=== PATIENT | female | born 1990 | race Caucasian/White ===

== ENCOUNTER 2023-06-18 05:07 | Observation (INO) | payer OTHER, SELFPAY ==
[2023-06-18] VITALS (32 sets, daily range): BP systolic 114–173; BP diastolic 59–102; PULSE 63–103; RESP 11–20; TEMP 36.1–37.1; O2SAT 85–100; BMI 34.0; BMI 36.1
--- NOTE | 2023-06-18 | PATH_ITS ---
[facility] Accession Number: [id number] No. of containers..01 Tissue . 01 Material submitted: . gallbladder - GALLBLADDER . 01 Diagnosis: Gallbladder, Cholecystectomy: Chronic cholecystitis, cholelithiasis, and cholesterolosis. One benign lymph node identified. MRV 06/29/2023 1730 Local . 01 Electronically signed: . Herminia Pearce MD, Pathologist NPI- [id number] . 01 Gross description: . The specimen is received in formalin labeled with the patient's name, , and gallbladder, and consists of an intact gallbladder measuring 9.9 x 3.4 x 3.3 cm with an unremarkable external surface. The cystic duct margin is inked blue. A varghese lymph node candidate is identified measuring 0.7 cm in greatest dimension. The lumen is filled with dark green mucoid bile admixed with multiple yellow bossellated calculi measuring up to 1.7 cm in greatest dimension not grossly obstructing the cystic duct. The mucosa is green and velvety with yellow areas of discoloration. No polyps or lesions are identified. The rodgers average 0.4 cm thick. Professor Of [employer] sections to include the cystic duct margin, full-thickness sections, and lymph node candidate are submitted in cassette A1. ([id number]) /FRR 06/19/2023 1605 Local . 01 Pathologist provided ICD-10: K80.10 . 01 CPT . 804599 Specimen Comment: A courtesy copy of this report has been sent to [phone] Performed at: 01 [facility] [address] [place] [address] [address] [facility], [place], [place] [id number] MD Eusebio Levy MD Phone: [phone]
--- NOTE | 2023-06-18 05:19 | ED_ITS ---
HPI - General Adult <Angel Subramanian - Last Filed: 06/18/23 18:08> General Chief complaint: Abdominal Pain Stated complaint: abd pain rt side Time Seen by Provider: 06/18/23 05:15 Source: patient Mode of arrival: Ambulatory Limitations: no limitations History of Present Illness HPI narrative: Patient is a 32-year-old female who here for evaluation approximately 8 hours right upper quadrant discomfort. She states that it started about 1100 hours last night. She was getting ready for bed when it happened. The pain has been present since then but there have been times when it has been worse than others. Some nausea but she states this is because of the pain. No vomiting. Has not had a bowel movement since the onset of the symptoms. States that urinating does not change it. No fevers. Has had 2 prior C-sections but no other abdominal surgeries. Related Data Home Medications Medication Instructions Recorded Confirmed lisinopril 5 mg tablet 5 mg PO DAILY 06/18/23 06/18/23 Previous Rx's Medication Instructions Recorded acetaminophen 325 mg capsule 650 mg PO QID PRN pain #60 caps 06/18/23 (Tylenol) oxycodone 5 mg tablet 5 mg PO Q6H PRN pain #20 tabs 06/18/23 Allergies Allergy/AdvReac Type Severity Reaction Status Date / Time No Known Drug Allergies Allergy Verified 06/18/23 05:27 Review of Systems <Angel Subramanian Marie Last Filed: 06/18/23 18:08> Cardiovascular Cardiovascular: Reports system reviewed and no additional complaints, except as documented Respiratory Respiratory: Reports system reviewed and no additional complaints, except as documented Gastrointestinal Gastrointestinal: Reports system reviewed and no additional complaints, except as documented Integumentary/Breasts Skin/Breast: Reports system reviewed and no additional complaints, except as documented Hematologic/Lymphatic On Anticoagulants: No Patient History <Angel BrittaneyDO Marie roberts Last Filed: 06/18/23 18:08> Medical History (Updated 06/18/23 @ 12:37 by Atul Robledo MD) HTN (hypertension) Surgical History (Updated 06/18/23 @ 12:37 by Atul Robledo MD) History of section Social History household members: spouse Smoking Status: Never smoker alcohol intake: current Smoking Status: Never smoker alcohol intake frequency: holidays/special occasions only Substance Use Type: does not use Exam <Angel Subramanian, DO - Last Filed: 06/18/23 18:08> Initial Vital Signs Initial Vital Signs: Vital Signs Pulse Oximetry 98 06/18/23 05:13 Oxygen Delivery Method Room Air 06/18/23 05:13 Const General: cooperative and No ill appearing HENMT Head: normal to inspection Chest Other: Tenderness right lower ribs Resp Effort & Inspection: normal respiratory effort Auscultation: clear to auscultation bilaterally Cardio Rate: regular rate Rhythm: regular rhythm GI Inspection: normal to inspection Palpation: soft, No firm, No guarding and tender (Right upper quadrant) Back/Spine/Pelvis Back: No CVA tenderness Skin General: no rashes or lesions noted Neuro General: patient alert, patient awake and moves all extremities Extrem General: normal to inspection <Fabrice Lee DO - Last Filed: 06/18/23 08:52> Initial Vital Signs Initial Vital Signs: Vital Signs Pulse Oximetry 98 06/18/23 05:13 Oxygen Delivery Method Room Air 06/18/23 05:13 Course <Angel Subramanian, - Last Filed: 06/18/23 18:08> Orders Ordered: Acetaminophen (Acetaminophen 325 Mg Tablet) 650 mg PO Q6H COUNTS INCLUDE 234 BEDS AT THE [facility] Last Admin: 06/18/23 16:34 Dose: 650 mg Documented By: PERI Benzocaine (Benzocaine/Menthol 1 Nesha Pkt) 1 each PO Q1HR PRN PRN Reason: Sore Throat Last Admin: 06/18/23 17:28 Dose: 1 each Documented By: JER Hydromorphone HCl (Hydromorphone 0.5 Mg Inj) 0.5 mg IV Q2H PRN PRN Reason: Pain, Severe (7-10) Lactated Ringer's (Lactated Ringers) 1,000 mls @ 125 mls/hr IV NOW ONE Stop: 06/18/23 21:35 Last Infusion: 06/18/23 16:52 Dose: 0 mls/hr Documented By: Admin: 06/18/23 15:27 Dose: 125 mls/hr Documented By: Infusion: 06/18/23 15:27 Dose: 125 mls/hr Documented By: Admin: 06/18/23 13:36 Dose: 125 mls/hr Documented By: PERI Lisinopril (Lisinopril 5 Mg Tablet) 5 mg PO DAILY COUNTS INCLUDE 234 BEDS AT THE [facility] Ondansetron HCl (Ondansetron 4 Mg/2 Ml Inj) 4 mg IV NOW PRN PRN Reason: Nausea And Vomiting Last Admin: 06/18/23 16:35 Dose: 4 mg Documented By: PERI Oxycodone HCl (Oxycodone Ir 5 Mg Tablet) 5 mg PO Q3H PRN PRN Reason: Pain, Moderate (4-6) Discontinued Medications Bupivacaine HCl (Bupivacaine 0.25% (Pf) Vial) 30 ml INJ NOW ONE Stop: 06/18/23 14:54 Last Admin: 06/18/23 14:53 Dose: 30 ml Documented By: KAYLI Fentanyl (Fentanyl 100 Mcg/2 Ml Inj) 0 mcg IV Q5MIN PRN PRN Reason: Pain, Severe (7-10) Fentanyl (Fentanyl 100 Mcg/2 Ml Inj) 0 mcg IV Q5M PRN PRN Reason: Pain, Moderate (4-6) Fentanyl (Fentanyl 100 Mcg/2 Ml Inj) 0 mcg IV Q5M PRN PRN Reason: Pain, Severe (7-10) Hydromorphone HCl (Hydromorphone 1 Mg Inj) 0 mg IV Q5MIN PRN PRN Reason: Pain, Mild (1-3) Hydromorphone HCl (Hydromorphone 1 Mg Inj) 0 mg IV Q5MIN PRN PRN Reason: Pain, Moderate (4-6) Last Admin: 06/18/23 16:45 Dose: 0.5 mg Documented By: Admin: 06/18/23 16:39 Dose: 0.5 mg Documented By: Admin: 06/18/23 16:34 Dose: 0.5 mg Documented By: PERI Hydromorphone HCl (Hydromorphone 1 Mg Inj) 0 mg IV Q5MIN PRN PRN Reason: Pain, Severe (7-10) Sodium Chloride (Normal Saline 0.9%) 1,000 mls @ 1,000 mls/hr IV BOLUS ONE Stop: 06/18/23 06:57 Last Infusion: 06/18/23 07:16 Dose: 0 mls/hr Documented By: Admin: 06/18/23 06:02 Dose: 1,000 mls/hr Documented By: RADHA Piperacillin Sod/Tazobactam (Sod 4.5 gm/ Sodium Chloride) 100 mls @ 200 mls/hr IV NOW ONE Stop: 06/18/23 08:49 Last Infusion: 06/18/23 09:33 Dose: 0 mls/hr Documented By: Admin: 06/18/23 09:03 Dose: 200 mls/hr Documented By: BISHOP Cefazolin Sodium/Dextrose (Ancef) 100 mls @ 200 mls/hr IV NOW ONE Stop: 06/18/23 15:23 Last Infusion: 06/18/23 14:35 Dose: 0 mls/hr Documented By: Admin: 06/18/23 14:22 Dose: 200 mls/hr Documented By: LEE Tranexamic Acid 1,000 mg/ (Sodium Chloride) 100 mls @ 200 mls/hr IV INTRA-OP ONE Stop: 06/18/23 16:03 Last Admin: 06/18/23 15:37 Dose: 200 mls/hr Documented By: LEE Ketorolac Tromethamine (Ketorolac 30 Mg/Ml Vial) 30 mg IV NOW ONE Stop: 06/18/23 05:20 Last Admin: 06/18/23 05:32 Dose: 30 mg Documented By: RADHA Lorazepam (Lorazepam 2 Mg/Ml Inj) 0.25 mg IV NOW PRN PRN Reason: Anxiety Naloxone HCl (Naloxone 0.4 Mg/Ml Vial) 0.2 mg IV Q2MIN PRN PRN Reason: Opiate Reversal Ondansetron HCl (Ondansetron 4 Mg/2 Ml Inj) 4 mg IV NOW ONE Stop: 06/18/23 05:20 Last Admin: 06/18/23 07:02 Dose: Not Given Documented By: RADHA Oxycodone HCl (Oxycodone Ir 5 Mg Tablet) 5 mg PO PACUNOW PRN PRN Reason: Mild or moderate pain Last Admin: 06/18/23 16:35 Dose: 5 mg Documented By: PERI Prochlorperazine (Prochlorperazine 10 Mg/2 Ml Vial) 5 mg IV NOW ONE Stop: 06/18/23 17:20 Last Admin: 06/18/23 17:28 Dose: 5 mg Documented By: JER Vital Signs Vital signs: Vital Signs - 8 hr 06/18/23 05:16 06/18/23 05:13 06/18/23 05:14 Temperature 98.7 F Pulse Rate 98 H Respiratory Rate 17 Blood Pressure 173/102 H 173/102 H Pulse Oximetry 100 98 Oxygen Delivery Method Room Air Room Air 06/18/23 05:14 06/18/23 05:30 06/18/23 05:33 Temperature Pulse Rate 103 H 87 Respiratory Rate Blood Pressure 134/75 Pulse Oximetry 100 97 Oxygen Delivery Method Room Air Room Air 06/18/23 05:33 06/18/23 06:00 06/18/23 06:00 Temperature Pulse Rate 92 H 68 Respiratory Rate 18 Blood Pressure 125/59 L Pulse Oximetry 97 94 Oxygen Delivery Method Room Air 06/18/23 06:36 06/18/23 06:36 06/18/23 07:00 Temperature Pulse Rate 82 Respiratory Rate Blood Pressure 117/79 114/65 Pulse Oximetry 97 Oxygen Delivery Method Room Air 06/18/23 07:00 06/18/23 07:30 06/18/23 07:30 Temperature Pulse Rate 69 72 Respiratory Rate Blood Pressure 120/65 Pulse Oximetry 98 99 Oxygen Delivery Method <Fabrice Lee, - Last Filed: 06/18/23 08:52> Orders Ordered: Acetaminophen (Acetaminophen 325 Mg Tablet) 650 mg PO Q6H KEYLA Last Admin: 06/18/23 16:34 Dose: 650 mg Documented By: PERI Benzocaine (Benzocaine/Menthol 1 Nesha Pkt) 1 each PO Q1HR PRN PRN Reason: Sore Throat Last Admin: 06/18/23 17:28 Dose: 1 each Documented By: JER Hydromorphone HCl (Hydromorphone 0.5 Mg Inj) 0.5 mg IV Q2H PRN PRN Reason: Pain, Severe (7-10) Lactated Ringer's (Lactated Ringers) 1,000 mls @ 125 mls/hr IV NOW ONE Stop: 06/18/23 21:35 Last Infusion: 06/18/23 16:52 Dose: 0 mls/hr Documented By: Admin: 06/18/23 15:27 Dose: 125 mls/hr Documented By: Infusion: 06/18/23 15:27 Dose: 125 mls/hr Documented By: Admin: 06/18/23 13:36 Dose: 125 mls/hr Documented By: PERI Lisinopril (Lisinopril 5 Mg Tablet) 5 mg PO DAILY COUNTS INCLUDE 234 BEDS AT THE [facility] Ondansetron HCl (Ondansetron 4 Mg/2 Ml Inj) 4 mg IV NOW PRN PRN Reason: Nausea And Vomiting Last Admin: 06/18/23 16:35 Dose: 4 mg Documented By: PERI Oxycodone HCl (Oxycodone Ir 5 Mg Tablet) 5 mg PO Q3H PRN PRN Reason: Pain, Moderate (4-6) Discontinued Medications Bupivacaine HCl (Bupivacaine 0.25% (Pf) Vial) 30 ml INJ NOW ONE Stop: 06/18/23 14:54 Last Admin: 06/18/23 14:53 Dose: 30 ml Documented By: KAYLI Fentanyl (Fentanyl 100 Mcg/2 Ml Inj) 0 mcg IV Q5MIN PRN PRN Reason: Pain, Severe (7-10) Fentanyl (Fentanyl 100 Mcg/2 Ml Inj) 0 mcg IV Q5M PRN PRN Reason: Pain, Moderate (4-6) Fentanyl (Fentanyl 100 Mcg/2 Ml Inj) 0 mcg IV Q5M PRN PRN Reason: Pain, Severe (7-10) Hydromorphone HCl (Hydromorphone 1 Mg Inj) 0 mg IV Q5MIN PRN PRN Reason: Pain, Mild (1-3) Hydromorphone HCl (Hydromorphone 1 Mg Inj) 0 mg IV Q5MIN PRN PRN Reason: Pain, Moderate (4-6) Last Admin: 06/18/23 16:45 Dose: 0.5 mg Documented By: Admin: 06/18/23 16:39 Dose: 0.5 mg Documented By: Admin: 06/18/23 16:34 Dose: 0.5 mg Documented By: PERI Hydromorphone HCl (Hydromorphone 1 Mg Inj) 0 mg IV Q5MIN PRN PRN Reason: Pain, Severe (7-10) Sodium Chloride (Normal Saline 0.9%) 1,000 mls @ 1,000 mls/hr IV BOLUS ONE Stop: 06/18/23 06:57 Last Infusion: 06/18/23 07:16 Dose: 0 mls/hr Documented By: Admin: 06/18/23 06:02 Dose: 1,000 mls/hr Documented By: RADHA Piperacillin Sod/Tazobactam (Sod 4.5 gm/ Sodium Chloride) 100 mls @ 200 mls/hr IV NOW ONE Stop: 06/18/23 08:49 Last Infusion: 06/18/23 09:33 Dose: 0 mls/hr Documented By: Admin: 06/18/23 09:03 Dose: 200 mls/hr Documented By: BISHOP Cefazolin Sodium/Dextrose (Ancef) 100 mls @ 200 mls/hr IV NOW ONE Stop: 06/18/23 15:23 Last Infusion: 06/18/23 14:35 Dose: 0 mls/hr Documented By: Admin: 06/18/23 14:22 Dose: 200 mls/hr Documented By: LEE Tranexamic Acid 1,000 mg/ (Sodium Chloride) 100 mls @ 200 mls/hr IV INTRA-OP ONE Stop: 06/18/23 16:03 Last Admin: 06/18/23 15:37 Dose: 200 mls/hr Documented By: LEE Ketorolac Tromethamine (Ketorolac 30 Mg/Ml Vial) 30 mg IV NOW ONE Stop: 06/18/23 05:20 Last Admin: 06/18/23 05:32 Dose: 30 mg Documented By: RADHA Lorazepam (Lorazepam 2 Mg/Ml Inj) 0.25 mg IV NOW PRN PRN Reason: Anxiety Naloxone HCl (Naloxone 0.4 Mg/Ml Vial) 0.2 mg IV Q2MIN PRN PRN Reason: Opiate Reversal Ondansetron HCl (Ondansetron 4 Mg/2 Ml Inj) 4 mg IV NOW ONE Stop: 06/18/23 05:20 Last Admin: 06/18/23 07:02 Dose: Not Given Documented By: RADHA Oxycodone HCl (Oxycodone Ir 5 Mg Tablet) 5 mg PO PACUNOW PRN PRN Reason: Mild or moderate pain Last Admin: 06/18/23 16:35 Dose: 5 mg Documented By: PERI Prochlorperazine (Prochlorperazine 10 Mg/2 Ml Vial) 5 mg IV NOW ONE Stop: 06/18/23 17:20 Last Admin: 06/18/23 17:28 Dose: 5 mg Documented By: JER Vital Signs Vital signs: Vital Signs - 8 hr 06/18/23 05:16 06/18/23 05:13 06/18/23 05:14 Temperature 98.7 F Pulse Rate 98 H Respiratory Rate 17 Blood Pressure 173/102 H 173/102 H Pulse Oximetry 100 98 Oxygen Delivery Method Room Air Room Air 06/18/23 05:14 06/18/23 05:30 06/18/23 05:33 Temperature Pulse Rate 103 H 87 Respiratory Rate Blood Pressure 134/75 Pulse Oximetry 100 97 Oxygen Delivery Method Room Air Room Air 06/18/23 05:33 06/18/23 06:00 06/18/23 06:00 Temperature Pulse Rate 92 H 68 Respiratory Rate 18 Blood Pressure 125/59 L Pulse Oximetry 97 94 Oxygen Delivery Method Room Air 06/18/23 06:36 06/18/23 06:36 06/18/23 07:00 Temperature Pulse Rate 82 Respiratory Rate Blood Pressure 117/79 114/65 Pulse Oximetry 97 Oxygen Delivery Method Room Air 06/18/23 07:00 06/18/23 07:30 06/18/23 07:30 Temperature Pulse Rate 69 72 Respiratory Rate Blood Pressure 120/65 Pulse Oximetry 98 99 Oxygen Delivery Method Medical Decision Making <Angel Subramanian, - Last Filed: 06/18/23 18:08> Lab Data 06/18/23 05:23 06/18/23 05:23 Labs: Lab Results 06/18/23 06/18/23 Range/Units 05:23 05:23 WBC 10.9 (4.5-11.0) X10^3/uL RBC 4.84 (4.0-5.2) X10^6/uL Hgb 14.7 (12.0-16.0) g/dL Hct 42.9 (36-46) % MCV 88.5 (80-100) fL MCH 30.4 (26-34) PG MCHC 34.3 (30-36) % RDW 13.1 (11.6-14.8) % Plt Count 264 (150-400) X10^3/uL Neut % (Auto) 50.5 (50-75) % Lymph % (Auto) 39.8 (25-40) % Wayne % (Auto) 7.4 (3-14) % Eos % (Auto) 1.2 L (2-4) % Baso % (Auto) 1.1 (0-2) % Neut # (Auto) 5500 (4908-7763) /uL Lymph # (Auto) 4400 (2029-4030) /uL Wayne # (Auto) 800 (0-900) /uL Eos # (Auto) 100 (0-450) /uL Baso # (Auto) 100 (0-100) /uL Sodium 139 (137-145) mmol/L Potassium 3.8 (3.4-5.1) mmol/L Chloride 107 (98-107) mmol/L Carbon Dioxide 20 L (22-32) mmol/L BUN 16 (7-17) mg/dL Creatinine 0.77 (0.52-1.04) mg/dL Estimated GFR > 60 (>60) mL/min BUN/Creatinine Ratio 20.8 (6-22) Glucose 115 H (70-100) mg/dL Calcium 9.2 (8.4-10.2) mg/dL Total Bilirubin 0.3 (0.2-1.3) mg/dL AST 22 (14-36) IU/L ALT 17 (<35) IU/L Alkaline Phosphatase 63 (38-126) U/L Total Protein 8.2 (6.3-8.2) g/dL Albumin 4.6 (3.5-5.0) g/dL Globulin 3.6 (1.7-4.1) g/dL Albumin/Globulin Ratio 1.3 (1.0-2.8) Lipase 242 (23-300) U/L Point of Care Testing Test Results Negative Urine Dip Bedside Urine Glucose Negative Bedside Urine Bilirubin - Negative Bedside Urine Ketone - Negative Urine Specific Tarzana 1.01 Bedside Urine Occult Blood - Negative Bedside Urine pH 7.5 Bedside Urine Protein - Negative Bedside Urine Urobilinogen - Negative Bedside Urine Nitrite - Negative Bedside Urine Leukocytes - Negative Esterase Point of care testing: Point of Care Testing Test Results Negative Urine Dip Bedside Urine Glucose Negative Bedside Urine Bilirubin - Negative Bedside Urine Ketone - Negative Urine Specific Tarz[place] 1.01 Bedside Urine Occult Blood - Negative Bedside Urine pH 7.5 Bedside Urine Protein - Negative Bedside Urine Urobilinogen - Negative Bedside Urine Nitrite - Negative Bedside Urine Leukocytes - Negative Esterase MDM Narrative Medical decision making narrative: Right upper quadrant pain. LFTs and lipase unremarkable. Ultrasound obtained to evaluate for gallbladder pathology. Care turned over to Dr. Lee who follow-up and disposition. <Fabrice Lee, DO - Last Filed: 06/18/23 08:52> Lab Data Labs: Lab Results 06/18/23 06/18/23 Range/Units 05:23 05:23 WBC 10.9 (4.5-11.0) X10^3/uL RBC 4.84 (4.0-5.2) X10^6/uL Hgb 14.7 (12.0-16.0) g/dL Hct 42.9 (36-46) % MCV 88.5 (80-100) fL MCH 30.4 (26-34) PG MCHC 34.3 (30-36) % RDW 13.1 (11.6-14.8) % Plt Count 264 (150-400) X10^3/uL Neut % (Auto) 50.5 (50-75) % Lymph % (Auto) 39.8 (25-40) % Wayne % (Auto) 7.4 (3-14) % Eos % (Auto) 1.2 L (2-4) % Baso % (Auto) 1.1 (0-2) % Neut # (Auto) 5500 (8731-0044) /uL Lymph # (Auto) 4400 (5788-7331) /uL Wayne # (Auto) 800 (0-900) /uL Eos # (Auto) 100 (0-450) /uL Baso # (Auto) 100 (0-100) /uL Sodium 139 (137-145) mmol/L Potassium 3.8 (3.4-5.1) mmol/L Chloride 107 (98-107) mmol/L Carbon Dioxide 20 L (22-32) mmol/L BUN 16 (7-17) mg/dL Creatinine 0.77 (0.52-1.04) mg/dL Estimated GFR > 60 (>60) mL/min BUN/Creatinine Ratio 20.8 (6-22) Glucose 115 H (70-100) mg/dL Calcium 9.2 (8.4-10.2) mg/dL Total Bilirubin 0.3 (0.2-1.3) mg/dL AST 22 (14-36) IU/L ALT 17 (<35) IU/L Alkaline Phosphatase 63 (38-126) U/L Total Protein 8.2 (6.3-8.2) g/dL Albumin 4.6 (3.5-5.0) g/dL Globulin 3.6 (1.7-4.1) g/dL Albumin/Globulin Ratio 1.3 (1.0-2.8) Lipase 242 (23-300) U/L Point of Care Testing Test Results Negative Urine Dip Bedside Urine Glucose Negative Bedside Urine Bilirubin - Negative Bedside Urine Ketone - Negative Urine Specific Tarz[place] 1.01 Bedside Urine Occult Blood - Negative Bedside Urine pH 7.5 Bedside Urine Protein - Negative Bedside Urine Urobilinogen - Negative Bedside Urine Nitrite - Negative Bedside Urine Leukocytes - Negative Esterase Point of care testing: Point of Care Testing Test Results Negative Urine Dip Bedside Urine Glucose Negative Bedside Urine Bilirubin - Negative Bedside Urine Ketone - Negative Urine Specific Tarz[place] 1.01 Bedside Urine Occult Blood - Negative Bedside Urine pH 7.5 Bedside Urine Protein - Negative Bedside Urine Urobilinogen - Negative Bedside Urine Nitrite - Negative Bedside Urine Leukocytes - Negative Esterase MDM Narrative Medical decision making narrative: Right upper quadrant pain. LFTs and lipase unremarkable. Ultrasound obtained to evaluate for gallbladder pathology. Care turned over to Dr. Lee who follow-up and disposition. [0700] (Jesus) Patient received in sign out from [Marilynn]. I have reviewed the clinical course and performed an independent history and physical exam. Pain well controlled, results of US pending. Ultrasound returns and demonstrates evidence of early cholecystitis in the presence of multiple stones including an 8 mm nonmobile stone stuck in the gallbladder neck. At this point I placed a call to Dr. Robledo and after discussing history, physical exam, labs and imaging he recommends patient be sta rted on Zosyn and admitted for cholecystectomy likely later today. I was able to discuss this diagnosis and plan with patient and family who were quick to agree. Discharge Plan Departure Patient Disposition: Admitted As Inpatient Clinical Impression: Cholelithiasis, Cholecystitis Admit Date/Time: 06/18/23 08:50 Admit Provider: Atul Robledo
[2023-06-18 05:32] LABS: Add Manual Diff / Slide Review NO; Basophils Absolute Auto 100 /uL (0-100); Basophils Percent Auto 1.1 % (0-2); Eosinophils Absolute Auto 100 /uL (0-450); Eosinophils Percent Auto 1.2 % (2-4); Hematocrit 42.9 % (36-46); Hemoglobin 14.7 g/dL (12.0-16.0); Lymphocytes Absolute Auto 4400 /uL (1100-4500); Lymphocytes Percent Auto 39.8 % (25-40); Mean Corpuscular HGB Conc 34.3 % (30-36); Mean Corpuscular Hemoglobin 30.4 PG (26-34); Mean Corpuscular Volume 88.5 fL (80-100); Monocytes Absolute Auto 800 /uL (0-900); Monocytes Percent Auto 7.4 % (3-14); Neutrophils Absolute Auto 5500 /uL (1500-7000); Neutrophils Percent Auto 50.5 % (50-75); Platelet Count 264 X10^3/uL (150-400); Red Blood Cell Count 4.84 X10^6/uL (4.0-5.2); Red Cell Distribution Width 13.1 % (11.6-14.8); White Blood Cell Count 10.9 X10^3/uL (4.5-11.0)
[2023-06-18] MEDS: KETOROLAC 30 MG/ML VIAL IV (05:32)
[2023-06-18 05:42] LABS: Alanine Aminotransferase 17 IU/L (<35); Albumin 4.6 g/dL (3.5-5.0); Albumin Globulin Ratio 1.3 (1.0-2.8); Alkaline Phosphatase 63 U/L (38-126); Aspartate Aminotransferase 22 IU/L (14-36); BUN Creatinine Ratio 20.8 (6-22); Bilirubin Total 0.3 mg/dL (0.2-1.3); Blood Urea Nitrogen 16 mg/dL (7-17); Calcium 9.2 mg/dL (8.4-10.2); Carbon Dioxide 20 mmol/L (22-32); Chloride 107 mmol/L (98-107); Estimated Glomerular Filt Rate > 60 mL/min (>60); Globulin 3.6 g/dL (1.7-4.1); Glucose 115 mg/dL (70-100); HEMOLYSIS < 15 (0-50); Lipase 242 U/L (23-300); Potassium 3.8 mmol/L (3.4-5.1); Sodium 139 mmol/L (137-145); Total Protein 8.2 g/dL (6.3-8.2)
--- NOTE | 2023-06-18 05:57 | DI.US.S_ITS ---
PROCEDURE: US ABDOMEN LIMITED INDICATIONS: RUQ PAIN TECHNIQUE: Real-time scanning was performed of the abdominal and retroperitoneal organs, with image documentation. COMPARISON: None. FINDINGS: Liver: Liver is normal in size and homogeneous in echotexture. Gallbladder: Gallbladder contains multiple non-mobile gallstones, largest approximately 8mm in size which is apparently lodged in the gallbladder neck. There is no pericholecystic fluid or wall thickening. There is a positive/abnormal sonographic Gale's sign. Biliary ducts: Intrahepatic bile ducts are non-dilated. Extrahepatic bile duct caliber measures 5 mm. Normal is 6-7 mm or less in diameter, or 10 mm or less post-cholecystectomy. Pancreas: Visualized portions of the pancreas are sonographically normal. Miscellaneous: No free abdominal fluid. IMPRESSION: Cholelithiasis with sonographic findings consistent with acute cholecystitis. Dictated by: Oren Sumner M.D. on 06/18/2023 at 7:24 Approved by: Oren Sumner M.D. on 06/18/2023 at 7:26
[2023-06-18] MEDS: SODIUM CHLORIDE 0.9% 1,000 ML 1000 ML IV (06:02)
[2023-06-18] MEDS: PIPERACILLIN/TAZO 4.5 GM in SODIUM CHLORIDE 0.9% 100 ML IV (09:03)
[2023-06-18 10:55] LABS: MRSA (Nasal) PCR Not Detected (Not Detect)
--- NOTE | 2023-06-18 12:32 | PM.HP.1 ---
History of Present Illness History of Present Illness Date Patient Seen: 06/18/23 Time Patient Seen: 12:33 Chief complaint: abd pain rt side Narrative: Ms. Samuels is a 32 year old woman with a history of controlled hypertension who presented to the emergency department at [facility] 06/17 with severe right upper quadrant pain. Workup demonstrates normal liver function tests and no leukocytosis. Ultrasound of the abdomen demonstrates multiple gallstones with a stone stuck within the neck of the gallbladder no pericholecystic fluid or wall thickening. She received 1 dose of Zosyn within the emergency department. This morning her pain is improved but not resolved. She has had numerous episodes of postprandial abdominal discomfort/bloating and had previously attributed this to food intolerance. She is been NPO since midnight. Prior surgeries include section x2 with no bleeding or anesthetic issues. [facility] Medical History (Updated 06/18/23 @ 12:37 by Atul Robledo MD) HTN (hypertension) Surgical History (Updated 06/18/23 @ 12:37 by Atul Robledo MD) History of section Social History household members: spouse Smoking Status: Never smoker Meds Home Medications and Allergies Home Medications Medication Instructions Recorded Confirmed Type lisinopril 5 mg tablet 5 mg PO DAILY 06/18/23 06/18/23 History oxycodone 5 mg tablet 5 mg PO Q6H PRN pain #20 tabs 06/18/23 Rx Allergies Allergy/AdvReac Type Severity Reaction Status Date / Time No Known Drug Allergies Allergy Verified 06/18/23 05:27 Exam Vital Signs (past 8 hours): - 06/18/23 05:16 06/18/23 05:13 06/18/23 05:14 Temperature 98.7 F Pulse Rate 98 H Respiratory Rate 17 Blood Pressure 173/102 H 173/102 H Pulse Oximetry 100 98 Oxygen Delivery Method Room Air Room Air 06/18/23 05:14 06/18/23 05:30 06/18/23 05:33 Temperature Pulse Rate 103 H 87 Respiratory Rate Blood Pressure 134/75 Pulse Oximetry 100 97 Oxygen Delivery Method Room Air Room Air 06/18/23 05:33 06/18/23 06:00 06/18/23 06:00 Temperature Pulse Rate 92 H 68 Respiratory Rate 18 Blood Pressure 125/59 L Pulse Oximetry 97 94 Oxygen Delivery Method Room Air 06/18/23 06:36 06/18/23 06:36 06/18/23 07:00 Temperature Pulse Rate 82 Respiratory Rate Blood Pressure 117/79 114/65 Pulse Oximetry 97 Oxygen Delivery Method Room Air 06/18/23 07:00 06/18/23 07:30 06/18/23 07:30 Temperature Pulse Rate 69 72 Respiratory Rate Blood Pressure 120/65 Pulse Oximetry 98 99 Oxygen Delivery Method 06/18/23 08:00 06/18/23 08:00 06/18/23 08:30 Temperature Pulse Rate 69 Respiratory Rate Blood Pressure 114/69 122/74 Pulse Oximetry 98 Oxygen Delivery Method 06/18/23 08:30 06/18/23 09:00 06/18/23 09:00 Temperature Pulse Rate 77 86 Respiratory Rate Blood Pressure 140/83 Pulse Oximetry 98 100 Oxygen Delivery Method 06/18/23 09:34 06/18/23 10:08 Temperature Pulse Rate 88 Respiratory Rate 16 Blood Pressure 136/78 Pulse Oximetry 100 Oxygen Delivery Method Room Air Room Air Oxygen Delivery Method Room Air Narrative Exam Narrative: GENERAL: A well nourished, well developed adult, resting comfortably in hospital bed, in no acute distress. HEENT: Normocephalic, atraumatic. No scleral icterus CHEST: Rising symmetrically. No audible wheezes CARDIOVASCULAR: Warm and well perfused. Regular rate ABDOMEN: Tender right upper quadrant. No peritonitis. EXTREMITIES: Normal tone and without edema. NEUROLOGIC: Moving all extremities spontaneously. No gross motor deficits. Objective Labs 06/18/23 05:23 06/18/23 05:23 Labs: Laboratory Results - last 24 hr 06/18/23 06/18/23 06/18/23 05:23 05:23 09:42 WBC 10.9 RBC 4.84 Hgb 14.7 Hct 42.9 MCV 88.5 MCH 30.4 MCHC 34.3 RDW 13.1 Plt Count 264 Neut % (Auto) 50.5 Lymph % (Auto) 39.8 Terrell % (Auto) 7.4 Eos % (Auto) 1.2 L Baso % (Auto) 1.1 Neut # (Auto) 5500 Lymph # (Auto) 4400 Terrell # (Auto) 800 Eos # (Auto) 100 Baso # (Auto) 100 Sodium 139 Potassium 3.8 Chloride 107 Carbon Dioxide 20 L BUN 16 Creatinine 0.77 Estimated GFR > 60 BUN/Creatinine Ratio 20.8 Glucose 115 H Calcium 9.2 Total Bilirubin 0.3 AST 22 ALT 17 Alkaline Phosphatase 63 Total Protein 8.2 Albumin 4.6 Globulin 3.6 Albumin/Globulin Ratio 1.3 Lipase 242 Nasal Screen MRSA (PCR) Not detected Assessment & Plan Assessment and plan (1) Cholecystitis: Status: Acute Assessment & Plan narrative: Ms. Samuels is a 32-year-old woman with a history of hypertension and obesity who has symptoms and radiographic findings suggestive of acute cholecystitis. Personally reviewed her laboratory studies and imaging which demonstrate normal liver function and a stone lodged within the neck of the gallbladder. I discussed these findings with the patient and my recommendation that we proceed to the operating room for a laparoscopic cholecystectomy. I michaela a diagram to illustrate the relevant anatomy. We discussed the surgery and its associated risks including but not limited to hemorrhage, infection, damage to surrounding structures including bile duct. Her questions have been answered she is in agreement with this plan. She provides her verbal consent to proceed. Quality VTE Deep Vein Thrombosis/Pulmonary Embolism Present on Admission: No
[2023-06-18] MEDS: LACTATED RINGERS 1,000 ML 125 ML IV ×2 (13:36→15:27)
--- NOTE | 2023-06-18 14:07 | PC.NURSE ---
Admit: Pt arrived via ED WC at approximately 0935. Pt able to ambulate in room without assist, VSS. Oriented pt to room, how to use call light, and fall safety. Preop nurse transferred pt from room at approximately 1310.
[2023-06-18] MEDS: CEFAZOLIN 2 GM/100 ML PREMIX 100 ML IV (14:22)
--- NOTE | 2023-06-18 14:40 | SUR.OPER ---
Supine on padded OR bed, head on pillow, safety belt at thigh, left arm padded and tucked at side. Right arm secured on padded arm board <90 degrees abduction. Legs uncrossed. Padded footboard in place. Tape over blanket to secure lower legs.
[2023-06-18] MEDS: BUPIVACAINE 0.25% (PF) VIAL 30 ML INJ (14:53)
[2023-06-18] MEDS: TRANEXAMIC ACID 1,000 MG in SODIUM CHLORIDE 0.9% 100 ML 200 MG IV (15:37)
--- NOTE | 2023-06-18 16:15 | PM.OP.1 ---
Operative Date/Time/Diagnoses Date of procedure: 06/18/23 Time of procedure: 16:16 Pre-op diagnosis: Acute cholecystitis Post-op diagnosis: same Procedure & Clinicians Procedure: Laparoscopic cholecystectomy Same procedure as scheduled: Yes Indications: 32-year-old woman with a history of biliary colic who presented to the emergency department with acute onset of abdominal pain liver function tests normal man ultrasound demonstrates stone lodged within the neck of the gallbladder. Surgeon: Atul Robledo Click Yes if Unassisted: Yes Anesthesia Type: General Operative Notes Findings: Large stones with 1 impacted within the neck. Persistent oozing from the gallbladder fossa Specimen(s): other (Gallbladder) Estimated Blood Loss (mL): 200 Procedure in detail: The patient was placed supine on the table and bilateral lower extremity compression devices were applied. Anesthesia was induced they were intubated with an endotracheal tube and received 2g of Ancef. A time-out was performed. They were prepped and draped in sterile fashion. An infraumbilical incision was made. The fascia was elevated incised and the abdomen was entered atraumatically. A blunt tip 12mm balloon trocar was then inserted, pneumoperitoneum was established and inspection of the abdomen demonstrated no evidence of injury. They were placed head up and right side up and then a 11 mm port was placed high in the epigastrium and two 5mm in the right upper quadrant. The gallbladder was grasped by the fundus and retracted over the liver and retracted laterally by the infundibulum. There were large stones within the gallbladder 1 impacted within the neck which was milked up. Using electrocautery the lateral plane between the gallbladder and the liver was opened towards the fundus. The gallbladder was then retracted laterally and the medial plane was developed in the same manner. With the gallbladder mobilized the bottom of the cystic plate was visualized. The hepatocystic triangle was meticulosly skeletonized with blunt dissection of fat and fibrous tissue from both the front and the back. Only two structures were then clearly seen entering the gallbladder the cystic duct and the cystic artery. With the critical view of safety fully established the cystic duct was clipped twice proximally and once distally using the 10 mm Weck hemoclip applied under direct visualization and then sharply divided. The cystic artery was divided in the same fashion. The gallbladder was removed from the liver bed using electro cautery. This was difficult as the gallbladder was intrahepatic. The liver bed continued to ooze persistently in total we probably lost 200 mL of blood. Using a combination of electrocautery coagulation and 2 pieces of Surgicel hemostasis was obtained. The abdomen was copiously irrigated of all clots and hemostasis was once again checked. The specimen was removed using Endo-Catch. The abdomen was desufflated. The umbilical fascia was closed with 0 Vicryl in a [id number] fashion under direct visualization. Skin incisions were irrigated and closed with 4-0 Monocryl. 30 ml of 0.25% bupivacaine was infiltrated into the subcutaneous tissue of the incisions. The wounds were sealed with Dermabond. Patient emerged from anesthesia was extubated and transferred to recovery in stable condition. The sponge and instrument count at the end of the operation was correct. Complications: none Post-operative Condition: stable Disposition: Acute Care
[2023-06-18] MEDS: ACETAMINOPHEN 325 MG TABLET 650 MG PO ×2 (16:34→21:42)
[2023-06-18] MEDS: HYDROMORPHONE 1 MG INJ IV ×3 (16:34→16:45)
[2023-06-18] MEDS: ONDANSETRON 4 MG/2 ML INJ IV (16:35)
[2023-06-18] MEDS: OXYCODONE IR 5 MG TABLET PO ×2 (16:35→23:30)
[2023-06-18] MEDS: PROCHLORPERAZINE 10 MG/2 ML VIAL 5 MG IV (17:28)
[2023-06-18] MEDS: BENZOCAINE/MENTHOL 1 LOZ PKT 1 EACH PO (17:28)
--- NOTE | 2023-06-18 18:26 | PC.NURSE ---
Pt Arrived in 228 per stretcher from PACU, Awake and complaining of slight nausea. Medicated in PACU - VSS, Able to walk from stretcher to bed without difficulty. IV SL. Orders reviewed
[2023-06-18] MEDS: SODIUM CHLORIDE 0.9% FLUSH 10 ML IV (20:46)
[2023-06-19] VITALS: BP 122/76; PULSE 89; RESP 17; TEMP 36.3; O2SAT 99
[2023-06-19] MEDS: ACETAMINOPHEN 325 MG TABLET 650 MG PO ×2 (03:42→10:07)
[2023-06-19 04:00] VITALS: BP 138/78; PULSE 85; RESP 19; TEMP 36.2; O2SAT 98
--- NOTE | 2023-06-19 06:15 | PC.NURSE ---
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 Scheduled Tylenol and 5mg oxycodone x1 effective for RUQ pain, no nausea. Ambulated in hallways x3 with SBA in am. Lap dressings CDI, voiding without difficulty. VSS.
[2023-06-19 08:24] VITALS: BP 134/72; PULSE 88
[2023-06-19] MEDS: lisinopriL 5 MG TABLET PO (08:24)
[2023-06-19 08:39] VITALS: BP 134/72; PULSE 80; RESP 17; TEMP 36.6; O2SAT 99
[2023-06-19] MEDS: SODIUM CHLORIDE 0.9% FLUSH 10 ML IV (08:45)
--- NOTE | 2023-06-19 10:29 | CM.DANOTE ---
Patient is a 32 yo female who was admitted on 06/18/23 for Abd Pain. Pt has [employer] for insurance and her PCP is at the [facility]. EMR was reviewed. Per MD, pt with hx of controlled hypertension and admitted with acute cholecystitis with stone lodged. Per Surgeon, pt had Lap Mary yesterday and pain is managed and voiding independently and medically stable to d/c home today with no identified barriers to discharge. SW witnessed pt ambulating halls independently x4 and steady on her feet and SW explained role and pt confirms she lives in [place] with her spouse and they are both active and independent at baseline and pt has supports and transport to home today and does not anticipate any needs and preference is home today no needs. Plan: Patient to d/c home today via POV and outpt f/u and no further SW needs at this time. ANDERSON Yarbrough Discharge Planning/Care Management CM Discharge Assessment Start: 06/19/23 10:26 Freq: Status: Active Protocol: Document 06/19/23 10:26 BF (Rec: 06/19/23 10:28 BF [id number]) Discharge Planning Assessment Assigned Mva Still Operator ANDERSON Bautista DPOA/Assigned Designee Name informally spouse Liam Contact Information [phone] Advance Directives? No Advance Directives on File No History Provided By Patient,Medical Record Has Patient been admitted in last 30 No days? Prior Living Arrangements House Household Members spouse Type of transporation used prior to Drives own vehicle admit Independent with ADL's Yes Is patient alert and oriented? Yes Barriers to Discharge No Discharge Plan Home Transportation Arrangement Spouse likely to transport Referrals Initiated None needed Whiteboard Updated in Patient Room with Yes name and ext. # of Mva Still Operator Review Status In Process Please Provide Date Initial DC 06/19/23 Assessment Was Performed Next Review Type Continued Stay Review
== END 2023-06-19 11:40 | disposition home or self-care (01) ==
LOC: ED 08:51 → ICU 09:25 → AC 06-21 06:22
PROVIDERS: Emergency Medicine; Admitting Provider Surgery; Emergency Provider Emergency Medicine; Referring Provider Emergency Medicine; Visit Provider Surgery
PROC: 0FT44ZZ Resection of Gallbladder, Percutaneous Endoscopic Approach (ICD-10-PCS; CPT 47562; principal; 2023-06-18 14:15)
DX: K80.00 Calculus of gallbladder with acute cholecystitis without obstruction (principal); I10 Essential (primary) hypertension
CPT/HCPCS: 47562; 36415; 76705; 80053; 81003; 81025; 83690; 85025; 87797; 96361; 96365; 96375; 99222; 99284; G0378; J0690; J0780; J1100; J1170; J1885; J2250; J2405; J2543; J2704; J3010